=== PATIENT | male | born 1990 | race African-American/Black ===

== ENCOUNTER 2017-09-18 18:21 | Emergency (ER) | payer OTHER ==
[~2017-09-18] VITALS: Ht 180.3 cm; Wt 97.5 kg
[2017-09-18] MEDS ORDERED: PENICILLIN G BENZATHINE LA 1.2 MU TBX IM STA (19:08)
[2017-09-18] MEDS ORDERED: DEXAMETHASONE SOD PHOS 10 MG/1 ML VIAL INJ ONE (19:15)
== END 2017-09-18 19:42 | disposition home or self-care (01) ==
LOC: FSED 18:21 → ER 19:42
DX: J03.00 Acute streptococcal tonsillitis, unspecified (principal)
CPT/HCPCS: 99283